=== PATIENT | male | born 1960 | race Caucasian/White ===

== ENCOUNTER 2017-07-01 11:09 | Emergency (ER) | payer OTHER ==
[~2017-07-01] VITALS: Ht 188 cm; Wt 158.8 kg
[2017-07-01 11:18] VITALS: BP 00/00
[2017-07-01] MEDS ORDERED: COR6 PO (11:25)
[2017-07-01] MEDS ORDERED: ATORVASTATIN CA40 M1 PO (11:26)
[2017-07-01] MEDS ORDERED: GOOD SENSE ASPI81 M3 PO (11:26)
[2017-07-01] MEDS ORDERED: LANTUS SOLOS100 U/M1 SQ (11:26)
[2017-07-01] MEDS ORDERED: ALDACTONE25 MG PO (11:26)
[2017-07-01] MEDS ORDERED: PROTONIX40 MG PO (11:27)
[2017-07-01] MEDS ORDERED: ZOLOFT25 MG PO (11:27)
[2017-07-01] MEDS ORDERED: NITROSTAT0.4 MG SL (11:27)
[2017-07-01] MEDS ORDERED: KEPPRA500 MG PO (11:27)
[2017-07-01] MEDS ORDERED: TAMSULOSIN HYD0.4 M1 PO (11:28)
[2017-07-01] MEDS ORDERED: BRILINTA60 MG PO (11:28)
--- NOTE | 2017-07-01 18:06 | NUR ---
SOCIAL SERVICE NOTE/LATE ENTRY: I WAS ASKED TO MEET WITH THIS PT'S FAMILY BY ER STAFF. PT CAME IN FULL ARREST AND WAS PRONOUNCED SHORTLY AFTER HE ARRIVED. PT'S FAMILY WAS APROPRIATELY GRIEVING BUT HAD QUESTIONS ABOUT POSSIBLY PURSUING AN AUTOPSY. I MET WITH THEM TO DISCUSS THEIR QUESTIONS. IT WAS A LARGE FAMILY- APPROXIMATELY 20 MEMBERS INCLUDING THE SPOUSE. I EDUCATED THEM RE AUTOPSY REFERRALS- MUST BE DONE EITHER THROUGH THE HEALTH CARE SANITARY TECHNICIAN OR THROUGH A PRIVATE PATHOLOGIST. PT WAS CLEARED BY THE CLINICAL STUDIES SPECIALIST AND ANY REQUEST THROUGH THEIR OFFICE WOULD HAVE TO BE REQUESTED BY THE FAMILY AND PAID FOR PRIVATELY. THEY WERE UNSURE IF THIS WAS THE CORRECT PATH AND EXPLAINED THAT THEY JUST NEEDED TO UNDERSTAND THE CAUSE OF . I OFFERED TO SPEAK WITH THE ER PHYSICIAN IN THEIR BEHALF. I SPOKE WITH BOTH DR. BAE AND KALPANA, WHO FELT THAT THEY HAD TRIED TO PROVIDE A BASIC EXPLANATION RE CAUSE OF . PER DR. BAE, PT HAD HEALTH PROBLEMS, SUCH HTN AND DIABETES, WHICH MAY HAVE CONTRIBUTED TO HIS CARDIAC ARREST, BUT DID NOT FEEL THAT FURTHER DISCUSSION WITH THE FAMILY WOULD BE HELPFUL. I WENT BACK AND REVIEWED THE PHYSICIAN'S EXPLANATION WITH THE FAMILY. I ALSO TOLD THEM THAT THE CERTIFICATE WORKSHEET IS COMPLETED BY THE HOSPITAL REAL ESTATE DEVELOPMENT MANAGER OR HIS DESIGNEE ONCE HE HAS REVIEWED THE RECORD. I OFFERED TO HAVE THIS PHYSICIAN MEET WITH THE FAMILY IF FURTHER EXPLANATION WERE NEEDED. THEY FELT MY INPUT HAD HELPED THEM AND WERE UNSURE THAT A FOLLOW-UP MEETING WAS NECESSARY, BUT WOULD CALL ME TOMORROW RE THIS MATTER. SUPPORTIVE TX PROVIDED. FOLLOW NEEDED.
== END 2017-07-01 16:33 | disposition expired ==
LOC: ED 11:09
DX: I46.9 Cardiac arrest, cause unspecified (principal); E07.9 Disorder of thyroid, unspecified; E11.9 Type 2 diabetes mellitus without complications; Z79.899 Other long term (current) drug therapy